=== PATIENT | male | born 2000 | race Caucasian/White ===

== ENCOUNTER 2020-01-30 21:47 | Emergency (ER) | payer OTHER ==
[~2020-01-30] VITALS: Ht 167.6 cm; Wt 59.0 kg
[2020-01-30 22:49] LABS: CALCIUM 9.5 mg/dL (8.5-10.1); CREATININE 0.7 mg/dL (0.6-1.3); POTASSIUM 3.3 mmol/L (3.5-5.1)
[2020-01-30 22:54] LABS: ALBUMIN 4.8 g/dL (3.4-5.0); TOTAL BILIRUBIN 0.9 mg/dL (<0.1-1.0); TOTAL PROTEIN 8.2 g/dL (6.4-8.2)
[2020-01-30 22:58] LABS: SALICYLATE < 2.8 mg/dL (2.8-20.0)
[2020-01-30 23:03] LABS: ACETAMINOPHEN < 2 ug/mL (10-30); ALCOHOL < 10 mg/dL (<10)
[2020-01-30 23:35] VITALS: BP 128/73
== END 2020-01-30 23:35 | disposition home or self-care (01) ==
LOC: M.ERS 21:47 → EDBD 21:47 → M.ERS 23:35
PROVIDERS: Personal Emergency Response Attendant
DX: G40.89 Other seizures (principal); R45.851 Suicidal ideations; E10.9 Type 1 diabetes mellitus without complications; Z91.040 Latex allergy status